=== PATIENT | female | born 1965 | race Caucasian/White ===

== ENCOUNTER 2020-10-15 14:33 | Emergency (ER) | payer OTHER ==
[~2020-10-15] VITALS: Ht 157.5 cm; Wt 68.2 kg
[2020-10-15] MEDS ORDERED: LOSA25TA21 PO (14:48)
[2020-10-15] MEDS ORDERED: AMLO2.5T96 PO (14:48)
[2020-10-15] MEDS ORDERED: KETOROLAC TROMETHAMINE 30 MG/ML VIAL IM ONE (16:00)
[2020-10-15 19:04] VITALS: BP 124/74
== END 2020-10-15 19:24 | disposition home or self-care (01) ==
LOC: EMS 14:40
DX: M65.222 Calcific tendinitis, left upper arm (principal); M19.022 Primary osteoarthritis, left elbow; I10 Essential (primary) hypertension; Z79.899 Other long term (current) drug therapy
CPT/HCPCS: 29105; 73030; 73060; 73070; 96372; 99284; J1885